=== PATIENT | male | born 2000 | race Caucasian/White ===

== ENCOUNTER 2019-11-19 08:17 | Emergency (ER) | payer BC ==
[2019-11-19] MEDS ORDERED: Pepcid 20 MG VIAL IV ONE ×2 (08:33→08:38)
[2019-11-19] MEDS ORDERED: ZOFRAN ODT 4 MG PO ONE (08:33)
[2019-11-19] MEDS ORDERED: Mylicon 80MG PO STA (08:35)
[2019-11-19] MEDS ORDERED: ZOFRAN ODT 4 MG ONE (08:38)
--- NOTE | 2019-11-19 08:42 | ERPHSYRPT ---
- History of Present Illness Time Seen by Provider: 11/19/19 08:25 Source: patient, family Exam Limitations: no limitations Patient Subjective Stated Complaint: Pt woke with pain in the entire abdominal area, last BM yesterday afternoon, feels bloated, expressing gas made him feel better, felt nauseous earlier, denies vomiting Triage Nursing Assessment: Pt brought to the ER by his mom, rates pain 6/10, hypertensive, no edema, bowel sounds heard in all 4, more pain with palpatation in the upper quadrants, doesn't appear to be in any distress Physician History: The patient is a 19-year-old male who is otherwise healthy presents with a chief complaint of abdominal pain. Onset reportedly was earlier this morning. He states he awoke with a sharp pain located in his epigastrium that radiates to his right upper quadrant and left upper quadrant. The pain is constant and moderate in severity and was associated with nausea but he denies vomiting. The pain is since gotten better since he reportedly passing gas and he endorsed feeling distended and feeling the need to burp. He denies fever, chills, diarrhea, recent travel outside of the country and recent sick contacts. He states he is experienced pain intermittently in the past but reportedly not as severe and not within the last 48 hours. 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 He denies right lower quadrant pain, decrease in appetite, symptoms consistent with a UTI but endorsed having some constipation in the past with his last bowel movement being yesterday morning. He denies melena, hematochezia. He does not have a primary care provider nor does he take any prescribed medicines. He did not take any [id number] medicines, specifically Pepto-Bismol or Mylanta prior to arrival to the emergency department. He reportedly had [employer] last night to eat for dinner. Timing/Duration: today Associated Symptoms: nausea, abdominal pain, No vomiting, No shortness of breath , No diaphoresis, No cough, No chills, No chest pain, No fever Allergies/Adverse Reactions: No Known Drug Allergies Allergy (Verified 11/19/19 08:33) - Review of Systems Constitutional: No Fever, No Chills Ears, Nose, & Throat: No Symptoms Respiratory: No Symptoms, No Dyspnea Cardiac: No Chest Pain Abdominal/Gastrointestinal: Abdominal Pain, Nausea, Constipation, No Vomiting, No Diarrhea, No Hematemesis, No Hematochezia, No Melena, No Appetite Changes Genitourinary Symptoms: No Symptoms Musculoskeletal: No Symptoms Skin: No Symptoms Neurological: No Symptoms Psychological: No Symptoms All Other Systems: Reviewed and Negative - Past Medical History Pertinent Past Medical History: No - Past Surgical History Past Surgical History: Yes - Social History Smoking Status: Never smoker Exposure to second hand smoke: No Drug Use: none Patient Lives Alone: No - Nursing Vital Signs Nursing Vital Signs: Initial Vital Signs Temperature 98.1 F 11/19/19 08:20 Pulse Rate 83 11/19/19 08:20 Respiratory Rate 16 11/19/19 08:20 Blood Pressure 168/92 11/19/19 08:20 O2 Sat by Pulse Oximetry 99 11/19/19 08:20 Pain Scale Pain Intensity 6 - Physical Exam General Appearance: no apparent distress, alert Eye Exam: PERRL/EOMI, eyes nml inspection, No scleral icterus, No pale conjunctivae Ears, Nose, Throat Exam: moist mucous membranes Neck Exam: normal inspection, supple, No JVD Respiratory Exam: normal breath sounds, lungs clear, airway intact, No chest tenderness, No respiratory distress, No diminished breath sounds, No accessory muscle use Cardiovascular Exam: regular rate/rhythm, normal heart sounds, normal peripheral pulses, No murmur, No friction rub, No gallop, No tachycardia, No capillary refill <2 sec, No edema Gastrointestinal/Abdomen Exam: soft, normal bowel sounds, tenderness (Mild epigastric, right upper quadrant, left upper quadrant abdominal tenderness with no rebound tenderness guarding and with a negative Foley sign), distention, No mass, No guarding, No pulsatile mass, No rebound, No hernia, No hepatomegaly, No splenomegaly, No bruit Male Genitalia Exam: normal genitalia, other (No evidence of testicular torsion) , No testicular tenderness, No testicular mass Rectal Exam: deferred Back Exam: normal inspection Extremity Exam: normal inspection, No calf tenderness, No pedal edema, No swelling, No tenderness Neurologic Exam: alert, oriented x 3 Skin Exam: normal color, warm, dry, rash, No petechiae, No jaundice SpO2 Interpretation: normal SpO2: 99 O2 Delivery: Room Air Ordered Tests: Active Orders 24 hr Category Date Time Status IV Insertion STAT Care 11/19/19 08:33 Active NPO (ED) STAT Care 11/19/19 08:33 Active PO Fluid Challenge STAT Care 11/19/19 09:05 Active CBC W DIFF Stat Lab 11/19/19 08:41 Completed CMP Stat Lab 11/19/19 08:41 Completed LIPASE Stat Lab 11/19/19 08:41 Completed UA W/RFX UR CULTURE Stat Lab 11/19/19 08:43 Completed Medication Summary Discontinued Medications Generic Name Dose Route Start Last Admin Trade Name Freq PRN Reason Stop Dose Admin Famotidine 20 mg 11/19/19 08:33 11/19/19 08:40 Pepcid 20 Mg Vial IV 11/19/19 08:34 20 mg STAT ONE Administration Famotidine Confirm 11/19/19 08:38 Pepcid 20 Mg Vial Administered 11/19/19 08:39 Dose 20 mg IV .STK-MED ONE Ondansetron HCl 4 mg 11/19/19 08:33 11/19/19 08:40 Zofran Odt 4 Mg PO 11/19/19 08:34 4 mg STAT ONE Administration Ondansetron HCl Confirm 11/19/19 08:38 Zofran Odt 4 Mg Administered 11/19/19 08:39 Dose 4 mg .ROUTE .STK-MED ONE Simethicone 80 mg 11/19/19 08:35 11/19/19 08:43 Mylicon 80mg PO 11/19/19 08:36 80 mg ONCE STA Administration Lab/Rad Data: Laboratory Result Diagrams 11/19/19 08:41 11/19/19 08:41 Laboratory Results 11/19/19 11/19/19 11/19/19 Range/Units 08:43 08:41 08:41 WBC 8.0 (4.0-10.5) K/mm3 RBC 5.37 (4.1-5.6) M/mm3 Hgb 16.4 (12.5-18.0) gm/dl Hct 47.3 (42-50) % MCV 88.1 (78-100) fl MCH 30.5 (26-32) pg MCHC 34.7 (32-36) g/dl RDW 12.4 (11.5-14.0) % Plt Count 313 (150-450) K/mm3 MPV 10.4 (7.5-11.0) fl Gran % 53.4 (36.0-66.0) % Eos # (Auto) 0.16 (0-0.5) Absolute Lymphs (auto) 2.76 (1.0-4.6) Absolute Monos (auto) 0.80 (0.0-1.3) Lymphocytes % 34.4 (24.0-44.0) % Monocytes % 10.0 (0.0-12.0) % Eosinophils % 2.0 (0.00-5.0) % Basophils % 0.2 (0.0-0.4) % Absolute Granulocytes 4.29 (1.4-6.9) Basophils # 0.02 (0-0.4) Sodium 141 (137-145) mmol/L Potassium 3.7 (3.5-5.1) mmol/L Chloride 105 (98-107) mmol/L Carbon Dioxide 28 (22-30) mmol/L Anion Gap 11.6 (5-15) MEQ/L BUN 14 (9-20) mg/dL Creatinine 0.88 (0.66-1.25) mg/dL Estimated GFR > 60.0 ML/MIN Glucose 89 (74-106) mg/dL Calcium 9.7 (8.4-10.2) mg/dL Total Bilirubin 1.40 H (0.2-1.3) mg/dL AST 28 (17-59) U/L ALT 28 (0-50) U/L Alkaline Phosphatase 55 (38-126) U/L Serum Total Protein 7.9 (6.3-8.2) g/dL Albumin 4.8 (3.5-5.0) g/dL Lipase 56 (23-300) U/L Urine Color YELLOW (YELLOW) Urine Appearance CLEAR (CLEAR) Urine pH 6.0 (5-6) Ur Specific [place]cl[place] 1.028 (1.005-1.025) Urine Protein NEGATIVE (Negative) Urine Ketones NEGATIVE (NEGATIVE) Urine Blood NEGATIVE (0-5) Mandeep/ul Urine Nitrite NEGATIVE (NEGATIVE) Urine Bilirubin NEGATIVE (NEGATIVE) Urine Urobilinogen NEGATIVE (0-1) mg/dL Ur Leukocyte Esterase NEGATIVE (NEGATIVE) Urine WBC (Auto) 0-2 (0-5) /HPF Urine RBC (Auto) 0-2 (0-2) /HPF U Epithel Cells (Auto) RARE (FEW) /HPF Urine Bacteria (Auto) RARE (NEGATIVE) /HPF Urine Mucus (Auto) SLIGHT (NEGATIVE) /HPF Urine Culture Reflexed NO (NO) Urine Glucose NEGATIVE (NEGATIVE) mg/dL - Progress Progress: improved, re-examined Progress Note: 11/19/19 08:44 Nontoxic in appearance. The differential at this time includes gas, peptic ulcer disease, gastritis. Currently with low suspicion for appendicitis at this time in addition to biliary colic/cholelithiasis, pancreatitis. The patient clinically does not seem to be suffering from a bowel obstruction at this time. His symptoms do not seem to be consistent with an infectious etiology, specifically serious bacterial illness. I will go ahead and obtain screening labs to include CBC, CMP, lipase and UA which I suspect all may be normal and if so, I do not feel abdominal imaging is warranted at this time. We will go ahead and treat him with IV famotidine in addition to simethicone and if his labs are within normal limits and his pain is improving he will be discharged with simethicone in addition to a trial of omeprazole to take for the next week. ED return precautions for appendicitis will be given as well. 11/19/19 08:46 11/19/19 09:09 Reviewed and relatively benign with the exception of T bili just 1/10 above the upper limits of normal. I believe this is no consequence. Given that his remaining LFTs are within normal limits I do not believe the patient is suffering from an obstructive biliary process at this time. 11/19/19 09:29 I reevaluated the patient and find that his pain has significantly improved however he is complaining of very minimal pain at this time. I then examined his abdomen and he had less tenderness and specifically no right lower quadrant tenderness to suggest appendicitis at this time. The patient endorsed that he was willing to drink and I gave him a cup of water to sip on to p.o. challenge him. He was also receptive to receiving a work excuse today. 11/19/19 09:35 The patient was sent home with prescriptions for simethicone in addition to omeprazole to trial for a week and see if this improves his symptoms. He was informed to eat fatty/greasy/spicy foods in moderation. He was given a PCP referral list call in to establish care with a primary care provider and instructed to return to the emergency department if his abdominal pain would become worse, specifically in the next 24 to 36 hours especially if his pain starts to migrate to the right lower quadrant. At that time, he should be evaluated and entertained for abdominal imaging. Read with and verbally understood the discharge plan. Counseled pt/family regarding: lab results, diagnosis, need for follow-up - Departure Departure Disposition: Home Clinical Impression: Abdominal pain, Elevated blood pressure reading Condition: Stable Critical Care Time: No Referrals: DOCTOR,NO FAMILY [Primary Care Provider] - Instructions: High Blood Pressure (DC), Acute Abdomen (Belly Pain), Adult (DC) Forms: Work/School Release Form Prescriptions: Simethicone 80 mg [Mylicon 80MG] 80 mg PO Q6HPRN PRN 7 Days #30 tab.chew PRN Reason: Gas Or Belching Omeprazole 20 mg PO DAILY 30 Days #30 capsule.
[2019-11-19 08:44] LABS: Absolute Neutrophil Ct (ANC) 4.29 (1.4-6.9); BASOPHIL % 0.2 % (0.0-0.4); Basophil (Absolute #) 0.02 (0-0.4); Eosinophil (Absolute #) 0.16 (0-0.5); Hematocrit 47.3 % (42-50); Hemoglobin 16.4 gm/dl (12.5-18.0); Lymphocyte (Absolute #) 2.76 (1.0-4.6); Lymphocytes % 34.4 % (24.0-44.0); Mean Cell Volume 88.1 fl (78-100); Mean Corpuscular Hemoglobin 30.5 pg (26-32); Mean Corpuscular Hgb Concent. 34.7 g/dl (32-36); Mean Platelet Volume 10.4 fl (7.5-11.0); Neutrophil % 53.4 % (36.0-66.0); Platelet Count 313 K/mm3 (150-450); Red Blood Count 5.37 M/mm3 (4.1-5.6); Red Cell Distribution Width 12.4 % (11.5-14.0)
[2019-11-19 08:52] LABS: Appearance CLEAR (CLEAR); Bilirubin NEGATIVE (NEGATIVE); Blood NEGATIVE Ery/ul (0-5); Glucose NEGATIVE (NEGATIVE); Ketones NEGATIVE (NEGATIVE); Leukocyte Esterase NEGATIVE (NEGATIVE); Mucus SLIGHT /HPF (NEGATIVE); Nitrite NEGATIVE (NEGATIVE); Protein,Urine Dip NEGATIVE (Negative); Specific Gravity 1.028 (1.005-1.025); Urobilinogen NEGATIVE mg/dL (0-1)
[2019-11-19 08:54] LABS: ALBUMIN 4.8 g/dL (3.5-5.0); ALKALINE PHOSPHATASE 55 U/L (38-126); ANION GAP 11.6 MEQ/L (5-15); BLOOD UREA NITROGEN 14 mg/dL (9-20); CHLORIDE 105 mmol/L (98-107); Calcium 9.7 mg/dL (8.4-10.2); Carbon Dioxide 28 mmol/L (22-30); Creatinine 1 0.88 mg/dL (0.66-1.25); Glucose 89 mg/dL (74-106); LIPASE 56 U/L (23-300); Potassium 3.7 mmol/L (3.5-5.1); SGOT/AST 28 U/L (17-59); SGPT/ALT 28 U/L (0-50); SODIUM 141 mmol/L (137-145); Total Protein 7.9 g/dL (6.3-8.2)
[2019-11-19 08:57] LABS: Bacteria RARE /HPF (NEGATIVE); Epithelial Cells RARE /HPF (FEW); RBC 0-2 /HPF (0-2); WBC 0-2 /HPF (0-5)
[2019-11-19 09:37] VITALS: BP 133/83; PULSE 68
[2019-11-19 09:39] VITALS: O2SAT 99
== END 2019-11-19 09:42 | disposition home or self-care (01) ==
LOC: ED 08:17
DX: R10.9 Unspecified abdominal pain (principal); R03.0 Elevated blood-pressure reading, without diagnosis of hypertension; R11.0 Nausea; K59.00 Constipation, unspecified
CPT/HCPCS: 36000; 36415; 80053; 81001; 83690; 85025; 96374; 99284; Q0162; A9270-GY

== ENCOUNTER 2020-12-06 11:15 | Emergency (ER) | payer BC ==
[2020-12-06] MEDS ORDERED: TORAdol 30 mg Injection IV ONE (11:53)
[2020-12-06] MEDS ORDERED: TORAdol 30 mg Injection ONE (11:56)
--- NOTE | 2020-12-06 12:01 | ERPHSYRPT ---
- History of Present Illness Time Seen by Provider: 12/06/20 11:34 Historian: patient Exam Limitations: no limitations Patient Subjective Stated Complaint: PT states "I have had abdominal pain for the past 5 to 6 days and for the past 3 days I have been fighting constipation and now I noticed a hemrrhoid." Triage Nursing Assessment: Pt presented alert and oriented x3 skin wpd. pt ambulates with an upright steady gait, able to speak in clear full sentences. Pt in no apparent respiratory distress. Physician History: 20 years old male presented in the ER with chief complaint of generalized abdominal pain for the last 5 to 6 days with progressive worsening. Patient reports having off and on abdominal pain for quite some time with associated constipation. For the last 4 days he could not go for bowel movement at all and this morning he tried, straining really hard and noticed some blood but still unable to go. This made him scared and he decided to come to ER. Patient report his pain initially was in the upper abdomen but now is more on the lower especially on the left side dull aching to sharp cramping moderate intensity, intermittent without any significant aggravating or relieving factors. Denies any associated nausea or vomiting. Patient reports initially he was taking omeprazole for his upper abdominal pain and it was helping but now pain seems out of control. No fever or chills reported. Timing/Duration: day(s) (5), gradual onset Activities at Onset: rest Quality: aching, cramping Abdominal Pain Onset Location: generalized abdomen Pain Radiation: no radiation Severity of Pain-Max: moderate Severity of Pain-Current: moderate Modifying Factors: Improves With: nothing Associated Symptoms: denies symptoms Previous symptoms: same symptoms as today Allergies/Adverse Reactions: No Known Drug Allergies Allergy (Verified 11/19/19 08:33) Hx Tetanus, Diphtheria Vaccination/Date Given: No Hx Influenza Vaccination/Date Given: No Hx Pneumococcal Vaccination/Date Given: No Immunizations Up to Date: Yes Travel Risk - International Travel Have you traveled outside of the country in past 3 weeks: No - Coronavirus Screening Are you exhibiting any of the following symptoms?: No Close contact with a COVID-19 positive Pt in past 14-21 Days: No - Review of Systems Constitutional: No Symptoms Eyes: No Symptoms Ears, Nose, & Throat: No Symptoms Respiratory: No Symptoms Cardiac: No Symptoms Abdominal/Gastrointestinal: Abdominal Pain, Constipation, Hematochezia Genitourinary Symptoms: No Symptoms Musculoskeletal: No Symptoms Skin: No Symptoms Neurological: No Symptoms Psychological: No Symptoms Endocrine: No Symptoms Hematologic/Lymphatic: No Symptoms Immunological/Allergic: No Symptoms - Past Medical History Pertinent Past Medical History: No - Past Surgical History Past Surgical History: Yes - Social History Smoking Status: Never smoker Exposure to second hand smoke: Yes Drug Use: none Patient Lives Alone: No - Nursing Vital Signs Nursing Vital Signs: Initial Vital Signs Temperature 98.3 F 12/06/20 11:21 Pulse Rate 96 H 12/06/20 11:21 Respiratory Rate 20 12/06/20 11:21 Blood Pressure 131/79 12/06/20 11:21 O2 Sat by Pulse Oximetry 94 L 12/06/20 11:21 Pain Scale Pain Intensity 5 - Physical Exam General Appearance: no apparent distress, alert Eye Exam: eyes nml inspection Ears, Nose, Throat Exam: normal ENT inspection, pharynx normal Neck Exam: normal inspection, non-tender, supple, full range of motion Respiratory Exam: normal breath sounds, lungs clear Cardiovascular Exam: regular rate/rhythm, normal heart sounds Gastrointestinal/Abdomen Exam: soft, normal bowel sounds, tenderness (Minimal generalized tenderness with more in the left lower quadrant. No guarding or rebound tenderness.) Back Exam: normal inspection, normal range of motion Extremity Exam: normal inspection, normal range of motion, pelvis stable Neurologic Exam: alert, oriented x 3, cooperative Skin Exam: normal color, warm SpO2 Interpretation: normal SpO2: 94 O2 Delivery: Room Air Ordered Tests: Active Orders 24 hr Category Date Time Status IV Insertion STAT Care 12/06/20 11:53 Completed OBSTR/ACUTE ABDOMEN SERIES Stat Exams 12/06/20 12:43 Taken CBC W DIFF Stat Lab 12/06/20 12:17 Completed CMP Stat Lab 12/06/20 12:17 Completed LIPASE Stat Lab 12/06/20 12:17 Completed UA W/RFX UR CULTURE Stat Lab 12/06/20 12:20 Completed Medication Summary Discontinued Medications Generic Name Dose Route Start Last Admin Trade Name Freq PRN Reason Stop Dose Admin Ketorolac Tromethamine 30 mg 12/06/20 11:53 12/06/20 11:56 Toradol 30 Mg Injection IV 12/06/20 11:54 30 mg STAT ONE Administration Ketorolac Tromethamine Confirm 12/06/20 11:56 Toradol 30 Mg Injection Administered 12/06/20 11:57 Dose 30 mg .ROUTE .STK-MED ONE Lab/Rad Data: Laboratory Result Diagrams 12/06/20 12:17 12/06/20 12:17 Laboratory Results 12/06/20 12/06/20 12/06/20 Range/Units 12:20 12:17 12:17 WBC 6.9 (4.0-10.5) K/mm3 RBC 5.31 (4.1-5.6) M/mm3 Hgb 15.5 (12.5-18.0) gm/dl Hct 46.3 (42-50) % MCV 87.2 (78-100) fl MCH 29.2 (26-32) pg MCHC 33.5 (32-36) g/dl RDW 12.7 (11.5-14.0) % Plt Count 292 (150-450) K/mm3 MPV 10.0 (7.5-11.0) fl Gran % 62.7 (36.0-66.0) % Eos # (Auto) 0.12 (0-0.5) Absolute Lymphs (auto) 1.90 (1.0-4.6) Absolute Monos (auto) 0.54 (0.0-1.3) Lymphocytes % 27.5 (24.0-44.0) % Monocytes % 7.8 (0.0-12.0) % Eosinophils % 1.7 (0.00-5.0) % Basophils % 0.3 (0.0-0.4) % Absolute Granulocytes 4.33 (1.4-6.9) Basophils # 0.02 (0-0.4) Sodium 140 (137-145) mmol/L Potassium 3.5 (3.5-5.1) mmol/L Chloride 103 (98-107) mmol/L Carbon Dioxide 29 (22-30) mmol/L Anion Gap 12.7 (5-15) MEQ/L BUN 8 L (9-20) mg/dL Creatinine 0.85 (0.66-1.25) mg/dL Estimated GFR > 60.0 ML/MIN Glucose 101 (74-106) mg/dL Calcium 9.9 (8.4-10.2) mg/dL Total Bilirubin 1.90 H (0.2-1.3) mg/dL AST 29 (17-59) U/L ALT 26 (0-50) U/L Alkaline Phosphatase 45 (38-126) U/L Serum Total Protein 7.9 (6.3-8.2) g/dL Albumin 4.8 (3.5-5.0) g/dL Lipase 34 (23-300) U/L Urine Color YELLOW (YELLOW) Urine Appearance CLEAR (CLEAR) Urine pH 7.0 (5-6) Ur Specific [place] 1.009 (1.005-1.025) Urine Protein NEGATIVE (Negative) Urine Ketones NEGATIVE (NEGATIVE) Urine Blood NEGATIVE (0-5) Mandeep/ul Urine Nitrite NEGATIVE (NEGATIVE) Urine Bilirubin NEGATIVE (NEGATIVE) Urine Urobilinogen NEGATIVE (0-1) mg/dL Ur Leukocyte Esterase NEGATIVE (NEGATIVE) Urine WBC (Auto) NONE (0-5) /HPF Urine RBC (Auto) NONE (0-2) /HPF U Epithel Cells (Auto) NONE (FEW) /HPF Urine Bacteria (Auto) NONE (NEGATIVE) /HPF Urine Mucus (Auto) SLIGHT (NEGATIVE) /HPF Urine Culture Reflexed NO (NO) Urine Glucose NEGATIVE (NEGATIVE) mg/dL - Progress Progress: improved, re-examined Progress Note: 12/06/20 13:25 20 years old is evaluated for generalized abdominal pain and some blood in the stool after straining. Patient has chronic constipation. Patient does not have any point tenderness but mild generalized tenderness with more on the left side. Negative Foley sign and negative McBurney point tenderness. Has normal white count, chemistry showed elevated bilirubin but normal transaminase. Patient had elevated bilirubin on previous work-up almost a month ago. I would recommend outpatient ultrasound and further evaluation. Do not think patient needs ultrasound today. I have obtained x-rays which showed moderate stool load, recommended MiraLAX and stool softener. Patient is given Toradol, on reevaluation feeling better. No peritoneal signs. Do not think patient needs CT imaging or any other work-up and is stable for discharge with outpatient follow-up. Counseled pt/family regarding: lab results, diagnosis, need for follow-up, rad results - Departure Departure Disposition: Home Clinical Impression: Generalized abdominal pain, Elevated bilirubin Constipation Qualifiers: Constipation type: unspecified constipation type Qualified Code(s): K59.00 - Constipation, unspecified Condition: Stable Critical Care Time: No Referrals: DOCTOR,NO FAMILY [Primary Care Provider] - MARYAN ZAVALA [ACTIVE STAFF] - Instructions: Constipation, Adult (DC), Acute Abdomen (Belly Pain), Adult (DC) Additional Instructions: Take Tylenol as needed. Drink plenty of fluids. Increase fiber supplements and diet. Continue with MiraLAX and Colace. Follow-up with primary care physician for reevaluation and may need ultrasound gallbladder because of elevated bilirubin level. Return to ER if pain is worsening or is shifting in the right upper abdomen with associated nausea vomiting or yellowish discoloration of eyes. Prescriptions: Docusate Sodium 100 mg [Colace 100 MG] 100 mg PO BID 30 Days #60 cap Polyethylene Glycol 3350 17 gm [Miralax Powder 17GM PACKET] 17 gm PO DAILY 30 Days #30 packet
[2020-12-06 12:21] LABS: Absolute Neutrophil Ct (ANC) 4.33 (1.4-6.9); BASOPHIL % 0.3 % (0.0-0.4); Basophil (Absolute #) 0.02 (0-0.4); Eosinophil % 1.7 % (0.00-5.0); Eosinophil (Absolute #) 0.12 (0-0.5); Hematocrit 46.3 % (42-50); Hemoglobin 15.5 gm/dl (12.5-18.0); Lymphocytes % 27.5 % (24.0-44.0); Mean Cell Volume 87.2 fl (78-100); Mean Corpuscular Hemoglobin 29.2 pg (26-32); Mean Corpuscular Hgb Concent. 33.5 g/dl (32-36); Monocyte (Absolute #) 0.54 (0.0-1.3); Monocytes % 7.8 % (0.0-12.0); Neutrophil % 62.7 % (36.0-66.0); Platelet Count 292 K/mm3 (150-450); Red Blood Count 5.31 M/mm3 (4.1-5.6); Red Cell Distribution Width 12.7 % (11.5-14.0); White Blood Count 6.9 K/mm3 (4.0-10.5)
[2020-12-06 12:31] LABS: ALBUMIN 4.8 g/dL (3.5-5.0); ALKALINE PHOSPHATASE 45 U/L (38-126); ANION GAP 12.7 MEQ/L (5-15); BLOOD UREA NITROGEN 8 mg/dL (9-20); CHLORIDE 103 mmol/L (98-107); Calcium 9.9 mg/dL (8.4-10.2); Carbon Dioxide 29 mmol/L (22-30); Creatinine 1 0.85 mg/dL (0.66-1.25); EST GLOMERULAR FILTRATION RATE > 60.0 ML/MIN; Glucose 101 mg/dL (74-106); LIPASE 34 U/L (23-300); Potassium 3.5 mmol/L (3.5-5.1); SGOT/AST 29 U/L (17-59); SGPT/ALT 26 U/L (0-50); SODIUM 140 mmol/L (137-145); Total Protein 7.9 g/dL (6.3-8.2)
[2020-12-06 12:37] LABS: Appearance CLEAR (CLEAR); Bilirubin NEGATIVE (NEGATIVE); Blood NEGATIVE Ery/ul (0-5); Glucose NEGATIVE (NEGATIVE); Ketones NEGATIVE (NEGATIVE); Leukocyte Esterase NEGATIVE (NEGATIVE); Mucus SLIGHT /HPF (NEGATIVE); Nitrite NEGATIVE (NEGATIVE); Protein,Urine Dip NEGATIVE (Negative); Specific Gravity 1.009 (1.005-1.025); Urobilinogen NEGATIVE mg/dL (0-1)
[2020-12-06 13:16] VITALS: BP 113/57; PULSE 77
[2020-12-06 13:29] VITALS: O2SAT 94
--- NOTE | 2020-12-06 18:49 | XRAY ---
Indication: Abdomen pain. Constipation. Comparison: None 2 view abdomen nonacute and nonobstructed with minimal scattered colonic fecal debris. Solid organs and osseous structures unremarkable. Single PA chest demonstrates normal heart, lungs, and bony thorax. Impression: Negative abdomen. Normal 1 view chest.
== END 2020-12-06 13:35 | disposition home or self-care (01) ==
LOC: ED 11:15
DX: R10.84 Generalized abdominal pain (principal); E80.6 Other disorders of bilirubin metabolism; K59.00 Constipation, unspecified
CPT/HCPCS: 36000; 36415; 74022; 80053; 81001; 83690; 85025; 96374; 99284; J1885

== ENCOUNTER 2023-01-30 10:44 | Emergency (ER) | payer BC ==
[2023-01-30] MEDS ORDERED: AMOXIL 500 MG PO ONE (11:12)
[2023-01-30 11:15] VITALS: BP 118/64; PULSE 73; O2SAT 100
--- NOTE | 2023-01-30 11:20 | ERPHSYRPT ---
- History of Present Illness Time Seen by Provider: 01/30/23 11:10 Source: patient Exam Limitations: no limitations Patient Subjective Stated Complaint: C/O left jaw/tooth pain since Monday Triage Nursing Assessment: Patient ambulated back to ER. He is alert and oriented. No SOB. Some swelling noted to gums around left upper back tooth. Physician History: This is a 22-year-old white male who has poor dentition and has intermittent dental pain. This most recent episode of left upper molar/dental pain began approximately 1 week ago. Patient has not seen a dentist. Timing/Duration: week(s) (1) Severity: mild (To moderate) Modifying Factors: Improves With: other (Hurts to chew) Associated Symptoms: denies symptoms Allergies/Adverse Reactions: No Known Drug Allergies Allergy (Verified 01/30/23 11:02) Hx Tetanus, Diphtheria Vaccination/Date Given: Yes Hx Influenza Vaccination/Date Given: No Hx Pneumococcal Vaccination/Date Given: No Immunizations Up to Date: Yes Travel Risk - International Travel Have you traveled outside of the country in past 3 weeks: No - Coronavirus Screening Are you exhibiting any of the following symptoms?: No Close contact with a COVID-19 positive Pt in past 14-21 Days: No - Vaccine Status Have you recieved a Covid-19 vaccination: No - Review of Systems Constitutional: No Symptoms Eyes: No Symptoms Ears, Nose, & Throat: Other (Dental pain left upper molars) Respiratory: No Symptoms Cardiac: No Symptoms Abdominal/Gastrointestinal: No Symptoms Genitourinary Symptoms: No Symptoms Musculoskeletal: No Symptoms Skin: No Symptoms Neurological: No Symptoms Psychological: No Symptoms Endocrine: No Symptoms Hematologic/Lymphatic: No Symptoms Immunological/Allergic: No Symptoms All Other Systems: Reviewed and Negative - Past Medical History Pertinent Past Medical History: No - Past Surgical History Past Surgical History: Yes - Social History Smoking Status: Never smoker Exposure to second hand smoke: No Drug Use: marijuana Patient Lives Alone: No - Nursing Vital Signs Nursing Vital Signs: Initial Vital Signs Temperature 98.2 F 01/30/23 11:00 Pulse Rate 73 01/30/23 11:00 Respiratory Rate 17 01/30/23 11:00 Blood Pressure 118/64 01/30/23 11:00 O2 Sat by Pulse Oximetry 100 01/30/23 11:00 Pain Scale Pain Intensity 6 - Physical Exam General Appearance: no apparent distress, alert, anxiety Eye Exam: PERRL/EOMI, eyes nml inspection Ears, Nose, Throat Exam: normal ENT inspection, moist mucous membranes, other (Dental caries left upper posterior molar with mild gingivitis) Neck Exam: normal inspection, non-tender, supple, full range of motion Respiratory Exam: airway intact, No chest tenderness, No respiratory distress Gastrointestinal/Abdomen Exam: No tenderness Rectal Exam: not done Back Exam: normal inspection, normal range of motion, No CVA tenderness, No vertebral tenderness Extremity Exam: normal inspection, normal range of motion, pelvis stable Neurologic Exam: alert, oriented x 3, cooperative, technical project manager II-XII nml as tested, normal mood/affect, nml cerebellar function, nml station & gait, sensation nml Skin Exam: normal color, warm, dry Lymphatic Exam: No adenopathy SpO2 Interpretation: normal SpO2: 100 O2 Delivery: Room Air - Course Nursing assessment & vital signs reviewed: Yes Ordered Tests: Medication Summary Discontinued Medications Generic Name Dose Route Start Last Admin Trade Name Freq PRN Reason Stop Dose Admin Amoxicillin 500 mg 01/30/23 11:12 Amoxicillin Trihydrate 500 Mg Capsule PO 01/30/23 11:13 STAT ONE - Progress Progress: unchanged Progress Note: 01/30/23 11:18 This patient's medical issue is 1 of low complexity. No lab work-up or radiographic work-up is necessary. Counseled pt/family regarding: diagnosis, need for follow-up Medical Desision Making - Discussion of managment Agreed on:: Treatment plan, need for follow-up - Diagnostic Testing Diagnostic test were ordered, analyzed, and reviewed by me: No - Risk of complications The pt has a mod risk of morbidity or mortality based on: Need for prescription drug management - Departure Departure Disposition: Home Clinical Impression: Dental infection Condition: Stable Critical Care Time: No Additional Instructions: Use Tylenol, ibuprofen and [id number] topical agents to help with pain control. Take your antibiotics as prescribed. Follow-up with a dentist for definitive care. Prescriptions: Amoxicillin 500 mg Cap [Amoxil 500 mg] 500 mg PO TID #30 cap
[2023-01-30] MEDS ORDERED: AMOXIL 500 MG ONE (11:21)
== END 2023-01-30 11:35 | disposition home or self-care (01) ==
LOC: ED 10:44
DX: K04.7 Periapical abscess without sinus (principal); K08.89 Other specified disorders of teeth and supporting structures; Z28.310 Unvaccinated for COVID-19
CPT/HCPCS: 99281; A9270-GY